=== PATIENT | female | born 1945 | race Caucasian/White ===

== ENCOUNTER 2022-08-29 11:13 | Outpatient (CLI) | payer MEDICARE, BC ==
[2022-08-29 12:21] LABS: BASOPHILS % (AUTO) 0.5 % (0.0-2.0); EOSINOPHILS % (AUTO) 2.1 % (0.0-6.0); HEMATOCRIT 39 % (33-45); HEMOGLOBIN 13.4 g/dL (11.5-14.8); LYMPHOCYTES # (AUTO) 1.6 K/uL (0.8-4.8); LYMPHOCYTES % (AUTO) 29.7 % (20.0-44.0); MEAN CORPUSCULAR HGB CONC 34 g/dl (31.0-36.0); MEAN CORPUSCULAR VOLUME 98 fL (82-100); MONOCYTES # (AUTO) 0.5 K/uL (0.1-1.30); MONOCYTES % (AUTO) 9.3 % (2.0-12.0); NEUTROPHILS # (AUTO) 3.2 K/uL (1.8-8.9); NEUTROPHILS % (AUTO) 58.4 % (43.0-81.0); PLATELET COUNT (AUTO) 224 K/uL (150-450); RED BLOOD CELL COUNT(AUTO) 4.02 MIL/uL (4.0-5.2); WHITE BLOOD COUNT (AUTO) 5.5 K/uL (4.3-11.0)
[2022-08-29 12:57] LABS: ALBUMIN 3.5 g/dL (3.4-5.0); BILIRUBIN,TOTAL 0.4 mg/dL (0.2-1.0); CALCIUM, SERUM 8.6 mg/dL (8.5-10.1); CREATININE 0.8 mg/dL (0.6-1.3); MAGNESIUM 1.8 mg/dL (1.8-2.4); POTASSIUM 4.2 mmol/L (3.5-5.1); TOTAL PROTEIN, SERUM 6.5 g/dL (6.4-8.2)
[2022-09-02 10:07] LABS: VITAMIN B1 THIAMINE,WB 167.6 nmol/L (66.5-200.0)
[2022-09-17 06:56] LABS: VITAMIN B6 SEE COMMENTS
== END 2022-08-29 23:59 | disposition home or self-care (01) ==
LOC: LAB 11:13
DX: Z00.00 Encounter for general adult medical examination without abnormal findings (principal); D53.9 Nutritional anemia, unspecified; D50.9 Iron deficiency anemia, unspecified; E78.5 Hyperlipidemia, unspecified; E46 Unspecified protein-calorie malnutrition; E50.9 Vitamin A deficiency, unspecified; E51.9 Thiamine deficiency, unspecified; E53.0 Riboflavin deficiency; E53.1 Pyridoxine deficiency; E61.2 Magnesium deficiency; E55.9 Vitamin D deficiency, unspecified; E56.8 Deficiency of other vitamins; Z79.01 Long term (current) use of anticoagulants
CPT/HCPCS: 36415; 80053-TC; 80061-TC; 82306; 82607-TC; 82728-TC; 83540-TC; 83735-TC; 84207; 84252; 84425; 85025-TC; 85730-TC